=== PATIENT | male | born 1970 | race Caucasian/White ===

== ENCOUNTER 2021-10-09 18:07 | Inpatient (IN) ==
[2021-10-09] MEDS ORDERED: ONDANSETRON 4 MG/2 ML VIAL IV STA (18:35)
[2021-10-09] MEDS ORDERED: HYDROmorphone 1 MG/1 ML SYRINGE IV STA (18:35)
[2021-10-09] MEDS ORDERED: PANTOPRAZOLE 40 MG VIAL IV STA (18:35)
[2021-10-09] MEDS ORDERED: SODIUM CHLORIDE 0.9% 1,000 ML IV STA ×3 (18:35→22:01)
[2021-10-09 18:50] LABS: Basophils % 0.5 % (0.0-0.8); Hematocrit 52.5 VOL% (42.0-52.0); Hemoglobin 18.1 GM/DL (14.0-18.0); Immature Granulocytes % 1.1 %; Immature Granulocytes Absolute 0.08 #; Lymphocytes # 1.6 10*3/uL (1.4-4.0); Lymphocytes % 21.1 % (21.2-54.2); Mean Corpuscular HGB Conc 34.5 GM/DL (32-36); Mean Corpuscular Volume 97.9 FL (87-102); Mean Platelet Volume 9.4 FL (9.6-12.0); Monocytes % 6.7 % (1.7-12.7); Neutrophils % 70.6 % (38.7-73.9); Platelet Count 174 T/CUMM (130-400); Red Blood Count 5.36 MC/CUMM (3.8-5.5); Red Cell Distribution Width 12.2 % (9.3-17.3); White Blood Count 7.5 T/CUMM (4-12)
[2021-10-09] MEDS ORDERED: HYDROmorphone 1 MG/1 ML SYRINGE IV ONE (19:21)
[2021-10-09] MEDS ORDERED: DILTIAZEM 50 MG/10 ML VIAL IV STA (19:22)
[2021-10-09 19:29] LABS: Alanine Aminotransferase 94 U/L (16-61); Albumin 4.8 G/DL (3.4-5.0); Alkaline Phosphatase 93 U/L (45-117); Aspartate Amino Transferase 49 U/L (0-37); Blood Urea Nitrogen 11 MG/DL (7-18); Calcium 9.5 MG/DL (8.5-10.1); Carbon Dioxide 13 MMOL/L (21-32); Estimated Glom Filtration Rate 106 ML/MIN; Glucose 344 MG/DL (74-106); Osmolality,Calculated 276.5 MOS/KG (273-304); Sodium 132 MMOL/L (136-145)
[2021-10-09] MEDS ORDERED: INSULIN REGULAR 100 UNIT/ML SUBCUT STA (19:44)
[2021-10-09] MEDS ORDERED: PROMETHAZINE 25 MG/1 ML VIAL IM STA (20:50)
[2021-10-09] MEDS ORDERED: PROMETHAZINE 25 MG/1 ML VIAL ONE (20:57)
[2021-10-09 20:58] LABS: Bacteria,Urine Occasional /HPF (Few); Mucus,Urine Occasional /LPF (Occasional); RBC,Urine 4 /HPF (0-4)
[2021-10-09 20:59] LABS: Bilirubin,Urine Small mg/dL (Negative); Blood, Urine Small mg/dL (Negative); Glucose,Urine (UA) 500 mg/dL (Negative); Ketones,Urine >160 mg/dL (Negative); Nitrite,Urine Negative (Negative); Protein,Urine 100 mg/dL (Negative); Urine Appearance Clear (Clear); Urine Color Yellow (Yellow); Urine Specific Gravity 1.025 (1.001-1.035); Urine Urobilinogen 0.2 eU/dL (<2.0)
[2021-10-09] MEDS ORDERED: METOPROLOL TARTRATE 5 MG/5 ML VIAL IV STA (21:01)
[2021-10-09 21:05] LABS: ABG HCO3 9.3 MMOL/L (20-26); ABG Oxygen Saturation 97.2 % (95-100); ABG PH 7.266 (7.35-7.45); ABG PO2 99.8 MM HG (80-95); ABG TCO2 9.9 MMOL/L (23-27)
[2021-10-09 21:08] LABS: ABG PCO2 20.9 MM HG (35-48)
[2021-10-09 22:57] LABS: Calcium 8.4 MG/DL (8.5-10.1); Osmolality,Calculated 279.2 MOS/KG (273-304); Potassium 4.9 MMOL/L (3.5-5.1)
[2021-10-09] MEDS ORDERED: IBUPROFEN 400 MG TABLET PO ONE (23:17)
[2021-10-09] MEDS ORDERED: diphenhydrAMINE CAP 25 MG CAPSULE PO SCH (23:20)
[2021-10-10] MEDS ORDERED: THIAMINE INJ 100 MG, FOLIC ACID INJ 1 MG, MULTIVITAMIN INJ 10 ML in SODIUM CHLORIDE 0.9... IV ONE
[2021-10-10] MEDS ORDERED: MAGNESIUM SULF RIDER 2 GM/50 ML PREMIX IV PRN (00:41)
[2021-10-10] MEDS ORDERED: MAGNESIUM SULF RIDER 4 GM/100 ML PREMIX IV PRN (00:41)
[2021-10-10] MEDS ORDERED: SODIUM BICARB INJ 100 MEQ in STERILE WATER INJ 400 ML IV PRN (00:41)
[2021-10-10] MEDS ORDERED: POTASSIUM CHLORIDE RIDER 10 MEQ/100 ML PREMIX IV PRN (00:41)
[2021-10-10] MEDS ORDERED: ALBUTEROL 2.5 MG/3 ML NEB RESP TX PRN (00:50)
[2021-10-10] MEDS ORDERED: hydrALAZINE 20 MG/1 ML VIAL IV PRN (00:50)
[2021-10-10] MEDS ORDERED: DOCUSATE SODIUM 100 MG CAPSULE PO PRN (00:50)
[2021-10-10] MEDS ORDERED: ONDANSETRON 4 MG/2 ML VIAL IV PRN (00:50)
[2021-10-10] MEDS ORDERED: DEXTROSE 10% 250 ML BAG IV PRN ×2 (00:53)
[2021-10-10] MEDS ORDERED: INSULIN REGULAR DRIP 100 ML IV SCH (01:00)
[2021-10-10] MEDS: LORazepam 1 MG TABLET PO SCH ×2 (01:01→03:26)
[2021-10-10] MEDS ORDERED: ENOXAPARIN 40 MG/0.4 ML SYRINGE SUBCUT SCH (02:00)
[2021-10-10] MEDS ORDERED: DEXTROSE 5% NACL 0.9% 1,000 ML IV SCH (03:06)
[2021-10-10 03:31] LABS: Basophils % 0.3 % (0.0-0.8); Hematocrit 42.8 VOL% (42.0-52.0); Hemoglobin 14.8 GM/DL (14.0-18.0); Immature Granulocytes % 0.4 %; Immature Granulocytes Absolute 0.03 #; Lymphocytes # 1.7 10*3/uL (1.4-4.0); Lymphocytes % 25.9 % (21.2-54.2); Mean Corpuscular HGB Conc 34.6 GM/DL (32-36); Mean Corpuscular Volume 99.3 FL (87-102); Mean Platelet Volume 9.2 FL (9.6-12.0); Monocytes % 10.2 % (1.7-12.7); Neutrophils % 63.2 % (38.7-73.9); Platelet Count 110 T/CUMM (130-400); Red Blood Count 4.31 MC/CUMM (3.8-5.5); Red Cell Distribution Width 12.4 % (9.3-17.3); White Blood Count 6.7 T/CUMM (4-12)
[2021-10-10 03:56] LABS: Calcium 8.2 MG/DL (8.5-10.1); Osmolality,Calculated 269.4 MOS/KG (273-304); Potassium 3.9 MMOL/L (3.5-5.1)
[2021-10-10] MEDS ORDERED: SODIUM CHLORIDE 0.9% 1,000 ML IV SCH (06:00)
[2021-10-10 07:25] LABS: Calcium 8.7 MG/DL (8.5-10.1); Osmolality,Calculated 270.2 MOS/KG (273-304); Potassium 3.6 MMOL/L (3.5-5.1)
[2021-10-10] MEDS ORDERED: INSULIN GLARGINE 100 UNIT/ML SUBCUT SCH (09:00)
[2021-10-10] MEDS ORDERED: INSULIN LISPRO 100 UNIT/ML SUBCUT SCH (09:00)
[2021-10-10] MEDS ORDERED: PANTOPRAZOLE 40 MG TABLET PO SCH (09:00)
[2021-10-10 09:10] VITALS: BP 143/77
[2021-10-10] MEDS ORDERED: SODIUM CHLORIDE 0.45% 1,000 ML IV SCH (18:00)
== END 2021-10-10 09:01 | disposition home or self-care (01) | DRG 639 ==
LOC: N.ED 18:07 → N.EDINP 23:39
PROVIDERS: ADMIT Family Medicine; ATTEND Family Medicine